=== PATIENT | female | born 1995 | race American Indian/Alaskan Native ===

== ENCOUNTER 2017-03-31 23:26 | Emergency (ER) | payer OTHER ==
[2017-03-12 12:52] VITALS: BMI 23.9
[2017-04-01] MEDS ORDERED: Lactated Ringer's 1,000 ML IV SCH (00:45)
[2017-04-01 01:59] LABS: BASO % 0.3 % (0.0-2.0); EOS # 0.1 K/uL (0.0-0.7); HEMATOCRIT 31.4 % (34.0-47.0); LYMPH # 2.9 K/uL (1.0-4.3); LYMPH % 36.5 % (20.0-40.0); MEAN CELL VOLUME 86.7 fL (81.0-99.0); MEAN CORPUSCULAR HEMOGLOBIN 28.4 pg (27.0-31.0); MEAN CORPUSCULAR HGB CONC 32.7 g/dL (33.0-37.0); MEAN PLATELET VOLUME 9.1 fL (7.2-11.7); MONO # 0.5 K/uL (0.0-0.8); MONO % 6.6 % (0.0-10.0); RED CELL DISTRIBUTION WIDTH 14.3 % (11.5-14.5); WHITE BLOOD COUNT 7.9 K/uL (4.8-10.8)
[2017-04-01 02:01] LABS: CHLORIDE 101 mmol/L (98-107); POTASSIUM 3.4 mmol/L (3.6-5.2); SODIUM 131 mmol/L (132-148)
[2017-04-01 02:03] LABS: ALKALINE PHOSPHATASE 61 U/L (38-126); AST/SGOT 24 U/L (14-36); BILIRUBIN,TOTAL 0.4 mg/dL (0.2-1.3); CARBON DIOXIDE 20 mmol/L (22-30); GFR AFRICAN-AMERICAN > 60; TOTAL PROTEIN 7.2 g/dL (6.3-8.3)
[2017-04-01 02:04] LABS: ALT/SGPT 30 U/L (9-52); BLOOD UREA NITROGEN 7 mg/dL (7-17); CALCIUM 8.7 mg/dl (8.6-10.4); GLUCOSE,RANDOM 82 mg/dL (65-105)
[2017-04-01 02:05] LABS: INR 0.9
[2017-04-01 02:17] LABS: RBC URINE 1 /hpf (0-3); URINE BACTERIA RARE (<OCC); URINE BILIRUBIN NEGATIVE (NEGATIVE); URINE BLOOD NEGATIVE (NEGATIVE); URINE COLOR Yellow (YELLOW); URINE GLUCOSE (UA) NORMAL (Normal); URINE KETONE NEGATIVE (NEGATIVE); URINE LEUKOCYTE ESTERASE TRACE Leu/uL (Negative); URINE PROTEIN NEGATIVE (NEGATIVE); URINE UROBILINOGEN NORMAL mg/dL (0.2-1.0); WBC URINE 3 /hpf (0-5)
--- NOTE | 2017-04-01 02:18 | OBHP ---
Datetime: 04/01/2017 00:16 IP Adm Impression: , intrauterine Admit Comment, IP Provider: 22 y/o @ 31.6 wks [place] PNC with Dr Sutton states she noticed some blo od on toilet paper after urinating around 10:00pm with intermitten cramping now resolved. pt denies p assign any blood clots, reports urinry freqnecy, deies any urgency, bloo din urine, feer, chills, mio ue, vomiting. pt dneis any ctx, vb, lof and reprots normal movements. Pt states she had VB in f irst trimester which spontaneous resolved nad follow with Dr Andrea lai. Pt states she was seen at [facility] for crampign and given 2 injections, but is unsure what its for. Pt states she was told her cervix is soft but not yet dilating. pt reprorts last intercourse 2 weeks ago. pt reports last US 3 w eeks and denies any issues or concerns also with placneta. Pt states she had normal genetic testing, passed her sugar test. Pt does not have copy of prental records. Ante: Antepartum bleeding, ? [place] at [facility] OB: [employer]: denies hx of fibroids, ovaiarn cyst, STI PMH: Denies PSH: Deies FHX non contributory SHX:deneis etoh/tobacco/drugs MEDS: PNV A/P 22 y/o @ 31.6 wks GA with vaginal spotting, currently stable -npo, ivf -labs: CBC, CMP, Fibringoe, PT/PTT, T ype and Screen, FFN -US: evluate placenta r/o previa, abruption -Type adn Cross as needed -cont toco and efm pt and pt mother informed of above plan and limited Level I facilty if admitted and stable reocmme nd transfer to hospital All qeuestins answered During evlautin, pt partner was standing at bedside holding pt had, closed his eyes adn then fell to [facility] floor backwards. back of head hit floor, pt lost conciouness _ 5-10 seconds, spontenaously res ponsed, stood up and sat in chair and said he felt ok. Gentleman was then said he felt warm adn escor gabby to waiting room where he was transported by wheelchair to the Er for evalulation. Pelvic Type - PN: Not Done Extremities - PN: Normal Abdomen - PN: Normal Back - PN: Normal Breast - PN: Not Done Lungs - PN: Normal Heart - PN: Normal Thyroid - PN: Not Done Neurologic - PN: Not Done HEENT - PN: Normal General - PN: Normal FHR - Baseline A Provider: 120 Contraction Comments Provider: irregular Comments, ACOG Physical Exam: GEN NAD , AAO x 3 ABD: soft, NT, ND, no palpable ctx no guaridng, no reboudn tenderness, no ridigty SSE: Bladder: non tender External Genitalia: no gross abnoralites Vagina: small amoutn of dark red blood tinged mucous on speclum, no blood clots, no gross dicharge , no lacerations visulized Cervix: FT/ 30, non tender Uterus; non tender Anus/Perneium Grossly normal Gestation - Est Wks by US: 31.6 EGA AdmitDate IP: 31.5 IP Chief Complaint: Vaginal bleeding Dilatation, Provider: 0 Genitourinary Exam: Normal DTRs - PN: Normal
--- NOTE | 2017-04-01 02:46 | US ---
EXAM: US After First Trimester, Transabdominal CLINICAL HISTORY: 22 years old, female; Signs and symptoms; Other: Vag bleed; ; Additional info: Vaginal bleeding in R/O previa, abrupati TECHNIQUE: Real-time transabdominal obstetrical ultrasound of the maternal pelvis and a second or third trimester with image documentation. COMPARISON: No relevant prior studies available. FINDINGS: Fetus: Single live intrauterine gestation. Heart rate: heart rate of 127 beats per minute. Presentation: Cephalic. Placenta: Anterior placenta. No placenta previa or abruption. Amniotic fluid: Normal. TANIKA = 17.9 cm. Anatomy: No gross anomaly is appreciated. BIOMETRICS Gestational age by US: Estimated gestational age of 29 weeks 6 days by measurements. EFW: Estimated weight of 1435 g. BPD: 7.5 cm, correlating with 30 weeks one day. HC: 27.5 cm, correlating with 30 weeks 0 days. AC: 25.4 cm, correlating with 29 weeks 4 days. FL: 5.6 cm, correlating with 29 weeks 4 days. MATERNAL: Uterus: Unremarkable. No myometrial mass. Cervix: Closed cervix. Cervical length = 2.7 cm. Free fluid: No free fluid. IMPRESSION: 1. Single live intrauterine gestation. EXAM: US , Transvaginal CLINICAL HISTORY: 22 years old, female; Signs and symptoms; Other: Vag bleed; ; Additional info: Vaginal bleeding in R/O previa, abrupati TECHNIQUE: Real-time endovaginal obstetrical ultrasound of the maternal pelvis and second or third trimester with image documentation. Endovaginal imaging was used for better evaluation of the cervix. COMPARISON: No relevant prior studies available. FINDINGS: Fetus: Single live intrauterine gestation. Heart rate: heart rate of 127 beats per minute. Presentation: Cephalic. Placenta: Anterior placenta. No placenta previa or abruption. Amniotic fluid: Normal. TANIKA = 17.9 cm. Anatomy: No gross anomaly is appreciated. BIOMETRICS Gestational age by US: Estimated gestational age of 29 weeks 6 days by measurements. EFW: Estimated weight of 1435 g. BPD: 7.5 cm, correlating with 30 weeks one day. HC: 27.5 cm, correlating with 30 weeks 0 days. AC: 25.4 cm, correlating with 29 weeks 4 days. FL: 5.6 cm, correlating with 29 weeks 4 days. MATERNAL: Uterus: Unremarkable. No myometrial mass. Cervix: Closed cervix. Cervical length = 2.7 cm. Free fluid: No free fluid. IMPRESSION: 1. Single live intrauterine gestation. EXAM: US Biophysical Profile Without Non-Stress Testing CLINICAL HISTORY: 22 years old, female; Signs and symptoms; Other: Vag bleed; ; Additional info: Vaginal bleeding in R/O previa, abrupati TECHNIQUE: Real-time ultrasound of the maternal pelvis for biophysical profile evaluation with image documentation. COMPARISON: No relevant prior studies available. FINDINGS: breathing movements: Present. Score 2/2. Gross body movements: Present. Score 2/2. tone: Present. Score 2/2. Qualitative amniotic fluid volume: Within normal limits. Score 2/2. IMPRESSION: Normal biophysical profile ultrasound. Score 8/8.
[2017-04-01 12:27] VITALS: BP 94/44; PULSE 72; RESP 20; TEMP 98.6
== END 2017-04-01 07:45 | disposition home or self-care (01) ==
LOC: C.EROB 23:26
DX: O26.853 Spotting complicating pregnancy, third trimester (principal); Z3A.31 31 weeks gestation of pregnancy
CPT/HCPCS: 76815; 76818; 80053; 80324; 80345; 80346; 80349; 80353; 80358; 80361; 81001; 83992; 85025; 85384; 85610; 85730; 86592; 86703; 86850; 86900; 87086; 99283; J7120